=== PATIENT | female | born 1935 | race Caucasian/White ===

== ENCOUNTER 2016-06-09 00:10 | Observation (INO) | payer MEDICARE ==
[2016-06-09] MEDS ORDERED: IPRATROPIUM/ALBUTEROL 3 ML VIAL NEB ONE (00:18)
[2016-06-09] MEDS ORDERED: FUROSEMIDE INJ 40 MG/4 ML VIAL IV ONE (00:18)
--- NOTE | 2016-06-09 00:48 | RAD ---
EXAM DESCRIPTION: XR CHEST 1 VIEW CLINICAL HISTORY: 81-year-old female with shortness of Breath and noncompliance with Lasix. COMPARISON: 05/02/2016. TECHNIQUE: Single AP view of the chest was obtained portably. FINDINGS: Stable cardiac mediastinal silhouette with cardiomegaly and tortuous atherosclerotic thoracic aorta. Interstitial and central pulmonary vascular prominence raising the concern for pulmonary vascular congestion, edema with bilateral basilar left greater than right opacification a finding which may reflect edema, subsegmental atelectasis versus consolidation. No large pleural effusions are identified, however trace pleural effusions cannot be excluded. No gross pneumothoraces. The visualized bones reveal diffuse demineralization and degenerative change. IMPRESSION: 1. Cardiomegaly with interstitial and airspace opacification concerning for edema versus atelectasis/consolidation. 2. No large pleural effusions are identified, however trace pleural effusions cannot be excluded. Electronically signed by: Sana Alberto MD 06/09/2016 00:46
[2016-06-09] MEDS ORDERED: INSULIN, REG.(HUMAN) 100 U/ML VIAL SUBCU ONE (02:01)
--- NOTE | 2016-06-09 02:13 | ED.PDOC ---
History of Present Illness - General Chief Complaint: Respiratory Problem Stated Complaint: short of breath Time Seen by Provider: 06/09/16 00:16 Source: patient, family Exam Limitations: no limitations - History of Present Illness Initial Comments: the patient is an 81-year-old female presenting with 24-36 hours of symptoms of progressive shortness of breath with activity as well as with lying back. Her feet are also hurting due to swelling. She and her took a car trip and she did not take her Lasix for 3 days. She does have a significant history of congestive heart failure and was admitted for a similar reason one month ago. She does get some mild chest discomfort when she gets significantly fluid overloaded but she does now. No syncope or near syncope. I did see her last month and she is significantly less short of breath today than she was then. No fever. No productive sputum. No palpitations. Timing/Duration: 24 hours Severity: moderate Improving Factors: medication Worsening Factors: movement Associated Symptoms: cough, malaise, shortness of breath Allergies/Adverse Reactions: Allergies Heparin Allergy (Mild, Verified 06/09/16 00:20) Home Medications: Ambulatory Orders Amlodipine Besylate 10 mg .ROUTE DAILY 04/30/16 Bumetanide 2 mg .ROUTE DAILY 04/30/16 Glimepiride 4 mg PO BIDFD 04/30/16 Lyrica 75 mg .ROUTE TID 04/30/16 Toprol Xl 50 mg .ROUTE DAILY 04/30/16 Valsartan 320 mg .ROUTE DAILY 04/30/16 Azithromycin Tab [Zithromax Tab] 250 mg PO DAILY #4 tab 05/02/16 Ciprofloxacin HCl [Cipro] 250 mg PO BID #14 tab 05/02/16 Review of Systems - Review of Systems Constitutional: States: malaise EENTM: States: no symptoms reported Respiratory: States: orthopnea, short of breath Cardiology: States: chest pain, edema Gastrointestinal/Abdominal: States: no symptoms reported Genitourinary: States: no symptoms reported Musculoskeletal: States: no symptoms reported Skin: States: no symptoms reported Neurological: States: no symptoms reported All other Systems: No Change from Baseline Past Medical History (General) - Patient Medical History Hx Seizures: No Hx Stroke: No Hx Asthma: No Hx of COPD: No Hx Cardiac Disorders: Yes - bypass Hx Congestive Heart Failure: Yes Hx Pacemaker: No Hx Hypertension: Yes Hx Diabetes: No Hx MRSA: No - Vaccination History Hx Tetanus, Diphtheria Vaccination: No Hx Influenza Vaccination: Yes Hx Pneumococcal Vaccination: Yes Immunizations Up to Date: No - Social History Hx Tobacco Use: No Hx Alcohol Use: No Hx Substance Use: No Hx Substance Use Treatment: No Hx Depression: No Hx Physical Abuse: No Hx Emotional Abuse: No - Female History Patient is a Female of Child Bearing Age (10 -59 yrs old): No Patient : No Family Medical History - Family History Mother Family History: Unknown Living Status: Unknown Physical Exam - Physical Exam General Appearance: Alert, Anxious, No apparent distress Eye Exam: bilateral normal Ears, Nose, Throat: normal ENT inspection, normal pharynx Neck: full range of motion, supple Respiratory: chest non-tender, no respiratory distress, no accessory muscle use , rales - at bilateral bases. No wheezes. Good air movement. Cardiovascular/Chest: normal peripheral pulses, regular rate, rhythm Peripheral Pulses: radial,right: 2+, radial,left: 2+, dorsalis pedis,right: 2+, dorsalis pedis,left: 2+ Gastrointestinal/Abdominal: soft - obese Rectal Exam: deferred Back Exam: normal inspection Extremity: normal range of motion, no calf tenderness, normal capillary refill, pedal edema - 2+ bilaterally Neurologic: alert, normal mood/affect, oriented x 3 Skin Exam: normal color Comments: Vital Signs - 24 hr 06/09/16 06/09/16 06/09/16 00:21 01:00 01:06 Pulse Rate 86 Pulse Rate [ 90 Left] Respiratory 24 20 Rate Blood Pressure 142/80 [Left Arm] O2 Sat by Pulse 94 L 97 96 Oximetry 06/09/16 01:10 Pulse Rate Pulse Rate [ 81 Left] Respiratory 20 Rate Blood Pressure 142/78 [Left Arm] O2 Sat by Pulse 98 Oximetry Progress - Progress Progress: 06/09/16 02:16 the patient is an 81-year-old female presenting with a CHF exacerbation due to medical noncompliance with Lasix. She has been given IV Lasix and placed on oxygen. She has diuresed some and is already feeling somewhat better. the patient will be admitted for further monitoring overnight. I do suspect that she will likely be able to go home late tomorrow or early the next day. Lab work appears reassuring. EKG is at her baseline. - Results/Orders Results/Orders: Laboratory Tests 06/09/16 00:45 WBC 6.2 RBC 4.54 Hgb 12.4 Hct 38.3 MCV 84.3 MCH 27.4 MCHC 32.5 L RDW 14.7 H Plt Count 121 L MPV 9.6 Absolute Neuts (auto) 4.50 Absolute Lymphs (auto) 1.00 Absolute Monos (auto) 0.50 Absolute Eos (auto) 0.20 Absolute Basos (auto) 0.10 Neutrophils % 71.2 Lymphocytes % 16.6 L Monocytes % 8.0 Eosinophils % 3.4 Basophils % 0.8 PT 11.9 INR 1.060 PTT (SP) 33.1 Sodium 134 L Potassium 4.8 Chloride 103 Carbon Dioxide 25 Anion Gap 10.8 L BUN 29 H Creatinine 1.40 H BUN/Creatinine Ratio 20.7 H Random Glucose 298 H Serum Osmolality 285.2 Calcium 9.3 Magnesium 1.7 L Total Bilirubin 0.6 AST 23 ALT 16 Alkaline Phosphatase 62 Creatine Kinase 32 CK-MB (CK-2) 2.8 CK-MB (CK-2) % Not Reportable Troponin I < 0.02 B-Natriuretic Peptide 510.0 H* Serum Total Protein 7.2 Albumin 3.6 Globulin 3.6 H Albumin/Globulin Ratio 1.0 L chest x-ray shows cardiomegaly and vascular congestion as well as a small amount of pulmonary edema primarily left lower lobe. EKG shows normal sinus rhythm with a left axis deviation and significant bundle branch blocks consistent with previous EKGs. Departure - Departure Clinical Impression: Congestive heart failure Qualifiers: Congestive heart failure type: unspecified congestive heart failure type Congestive heart failure chronicity: acute on chronic Qualifier Code: (I50.9) Heart failure, unspecified Disposition: Admit Patient Home Medications: Ambulatory Orders Amlodipine Besylate 10 mg .ROUTE DAILY 04/30/16 Bumetanide 2 mg .ROUTE DAILY 04/30/16 Glimepiride 4 mg PO BIDFD 04/30/16 Lyrica 75 mg .ROUTE TID 04/30/16 Toprol Xl 50 mg .ROUTE DAILY 04/30/16 Valsartan 320 mg .ROUTE DAILY 04/30/16 Azithromycin Tab [Zithromax Tab] 250 mg PO DAILY #4 tab 05/02/16 Ciprofloxacin HCl [Cipro] 250 mg PO BID #14 tab 05/02/16 Decision To Admit - Decistion To Admit Decision to Admit Reason: Medical Nature Decision to Admit Date: 06/09/16 Decision to Admit Time: 02:18
[2016-06-09] MEDS ORDERED: NITROGLYCERIN 0.4 MG 25 EA TAB SL PRN (02:21)
[2016-06-09] MEDS ORDERED: SODIUM CHLORIDE 0.9% (FLUSH) 10 ML SYG IV PRN (02:21)
[2016-06-09] MEDS ORDERED: ALBUTEROL SULFATE 2.5 MG/3 ML VIAL NEB PRN (02:21)
[2016-06-09] MEDS ORDERED: DEXTROSE 50% 25 GM/50 ML SYG IV PRN (02:21)
[2016-06-09] MEDS ORDERED: ACETAMINOPHEN 325 MG TAB PO PRN (02:21)
[2016-06-09] MEDS ORDERED: GLUCAGON INJ 1 MG VIAL SUBCU PRN (02:21)
--- NOTE | 2016-06-09 02:27 | HP ---
SUPERVISING PHYSICIAN: Gino Head M.D. CHIEF COMPLAINT: Increasing shortness of breath. HISTORY OF PRESENT ILLNESS: Ms. Umanzor is an 81 year-old female patient that presented to the E. R. complaining of progressively worsening shortness of breath with activity as well as lying supine. She noted in the last 24 to 36 hours her symptoms had begun to worsen and her feet were swelling to the point they were hurting. She has a significant history of congestive heart failure and takes Bumex on a regular basis. She and her took a car trip this last week and she did not take her Lasix for 3 days due to the fact that she did not want to be inconvenienced during the trip for having to go to the restroom multiple times. She does have a significant history of having been admitted for similar reasons in the last month. When she has increasing shortness of breath secondary to failure to comply with her medication regimen, she has some mild chest discomfort and gets significantly fluid overloaded. This admission, she denied any syncopal or near syncopal episodes or any chest pains, and notes that she is not as short of breath this admission as she was on previous and is not producing any sputum or having any palpitations or chest pains associated with her symptoms. In the Emergency Department, vital signs showed the patient to have an oxygen saturation of 96% on room air but obviously short of breath with nasal flaring and significant at 24 breaths per minute. Laboratory studies showed her to have a normal white count and initially chemistries showed an elevated BNP of 510 with cardiac enzymes being negative and troponin being less than 0.02. Chest x-ray was also completed and per radiology findings showed cardiomegaly with interstitial airspace opacification concerning for edema with no mention of large pleural effusions. In the Emergency Department prior to admission, she was given a DuoNeb treatment as well as 40 mg of IV Lasix and had significant improvement in her symptoms, therefore she will be placed in observation for continued diuresis and close monitoring and treatment. She was admitted in stable condition. PAST MEDICAL HISTORY: 1. Chronic congestive heart failure with diastolic dysfunction grade 2 with last echocardiogram in 2014 showing an ejection fraction of 56%. 2. History of medical noncompliance with diuretics and multiple exacerbations of her congestive heart failure requiring hospitalization with last being April 2016. 3. Coronary artery disease. 4. Hyperlipidemia. 5. Hypertension. 6. History of left hip fracture in 2006. 7. Osteoarthritis. 8. Type 2 diabetes mellitus on p.o. and insulin therapy. 9. 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 10. 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 PAST SURGICAL HISTORY: 1. Appendectomy. 2. Coronary artery bypass graft times 5 vessels in February of 2002. 3. Bilateral cataract removal in 2003. 4. Cholecystectomy. 5. Hysterectomy. 6. Tonsillectomy. 7. Bladder suspension. CURRENT MEDICATIONS: 1. Valsartan 320 mg daily. 2. Toprol XL 50 mg daily. 3. Nortriptyline 50 mg at bedtime. 4. Lyrica 75 mg 3 times a day. 5. Glimepiride 4 mg twice daily. 6. Bumetanide 2 mg daily. 7. Amlodipine 10 mg daily. ALLERGIES: HEPARIN RESULTED IN COMPLICATIONS FROM CORONARY ARTERY BYPASS GRAFT WITH SEVERE THROMBOCYTOPENIA. FAMILY HISTORY: Father at age 83 from coronary artery disease, diabetes mellitus, myocardial infarction in his 70s. Mother at age 39 from complications of hysterectomy. SOCIAL HISTORY: The patient lives in [place]. 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 She has never smoked nor has she ever drank alcohol. REVIEW OF SYSTEMS: Notes some weight gain since Dorothy, nonspecific amount but denies any fever or chills. HEENT: Denies any nasal congestion, sore throat or cough. RESPIRATORY: Denies any cough but reports orthopnea with shortness of breath and wheezing as noted in History of Present Illness. Denies any sputum production. CARDIOVASCULAR: Positive for edema and a history of congestive heart failure but denies any current chest pain or palpitations. ABDOMEN: Denies any abdominal pain, nausea, vomiting or diarrhea. GENITOURINARY : No increased frequency or other dysuria or urinary symptoms. NEUROLOGIC: No syncopal or presyncopal episodes, dizziness or other neurological symptoms. PHYSICAL EXAMINATION: VITAL SIGNS: Temperature 98.2, pulse 91, blood pressure 180/87, respirations 22 to 24 showing 98% on nasal cannula at rest. Admission weight is 107/3 kg which is a significant increase from previous admission at which time she weighed 96.6 kg. GENERAL: The patient is alert. Appears to be somewhat short of breath but is not in obvious distress. She is well nourished and well hydrated. HEENT: Tympanic membranes are clear bilaterally. Oropharynx is pink and moist without any lesions. There is no notable nasal congestion or any nasal flaring or increased use of accessory respiratory muscles. NECK: No jugular venous distention. CARDIOVASCULAR: Regular rate and rhythm without any appreciable gallops or rubs. There is note of a systolic murmur 2/6. ABDOMEN: Soft, obese but non-tender. Positive bowel sounds. EXTREMITIES: Show 2 to 3+ bilateral lower extremity edema, but no clubbing or cyanosis. NEUROLOGIC: She is alert and oriented times three. Cranial nerves II-XII are grossly intact. Facial features are symmetric. Extraocular movements are within normal limits. There is no nystagmus. There is no notable localizing or lateralizing neuromotor deficits. LABORATORY: CBC on admission shows a normal white count at 6.2, hemoglobin 12.4 , hematocrit 38.3, platelet count 121,000. Differential shows to be within normal limits. Coagulation studies are normal. Chemistries show sodium 134 with BUN 20, creatinine 1.4, potassium was normal at 4.8, calcium 9.8, magnesium 1.7. Liver functions show to be within normal limits. BNP was elevated at 510, troponin was less than 0.02. Initial glucose was 298 on admission. Urine showed dipstick with 100 protein, moderate amount of blood, but negative for nitrites or leukocyte esterase. Microscopic exam revealed 10 to 20 RBCs, 1 to 3 WBCs, 3 to 5 epithelial cells, 3+ amorphous sediment and 1+ bacteria. Urine culture is pending. RADIOLOGY: Chest x-ray one view per radiology interpretation prior to admission showed cardiomegaly with interstitial airspace opacification concerning for edema versus atelectasis/consolidation. There is no note of a large pleural effusion, however trace pleural effusions could not be excluded. ASSESSMENT: 1. Acute exacerbation of chronic congestive heart failure with diastolic dysfunction grade 2 as noted on last echocardiogram in 2014 with ejection fraction of 56% with elevated BNP on admission secondary to failure to comply with medication regimen. 2. Possible urinary tract infection with cultures pending. 3. History of coronary artery disease. 4. Hyperlipidemia. 5. Hypertension. 6. Type 2 diabetes mellitus on both oral therapy and insulin. 7. History of Heparin-induced thrombocytopenia. 8. Poor medical compliance in relation to medications for congestive heart failure as noted to result in acute exacerbation of her congestive heart failure. 9. Hypomagnesemia. PLAN: The patient will be placed in Observation for further treatment and evaluation. She was given 40 of Lasix in the Emergency Department and had good diuresis. She was admitted with no chest pains with some improvement in her breathing post diuresis as well as DuoNeb treatments. I will continue with diuresis this morning with an additional 40 of Lasix as well as resume her Bumex. She did have a Baker placed in the Emergency Department prior to admission, therefore will monitor her urine output closely and limit her total fluid intake to less than 1500 mL for a 24 hour day. She will be started on sliding scale for further management of her blood sugars and as well started on parenteral antibiotics to include Rocephin for treatment of possible underlying urinary tract infection. Anticipate length of stay to be 1 to 2 days, possibly discharge tomorrow after continued diuresis tonight with additional 40 of Lasix at 5:00. Plan to repeat laboratory studies in the morning as well as repeat x- ray and hopefully be able to discharge the patient tomorrow to have close clinical followup with her primary care physician, Dr. Wild, in the coming week. Until then, will continue to monitor the patient closely and treat appropriately. [id number] [facility]
[2016-06-09] MEDS ORDERED: IV SET AND CAP CHANGE INJ INJ SCH (02:30)
[2016-06-09] MEDS: IPRATROPIUM/ALBUTEROL 3 ML VIAL INH SCH ×4 (08:19→20:28)
[2016-06-09] MEDS: INSULIN LISPRO 100 UNITS/ML PEN SUBCU SCH ×4 (08:22→21:24)
[2016-06-09] MEDS ORDERED: cefTRIAXone SODIUM 1 GM VIAL ONE (08:55)
[2016-06-09] MEDS ORDERED: SODIUM CHL 0.9% 50ML MIN-BAG+ 50 ML IVPB ONE (08:55)
[2016-06-09] MEDS: cefTRIAXone SODIUM 1 GM in SODIUM CHL 0.9% 50ML MIN-BAG+ 50 ML IVPB SCH (08:58)
[2016-06-09] MEDS: FUROSEMIDE INJ 40 MG/4 ML VIAL IV SCH ×2 (09:14→17:30)
[2016-06-09] MEDS: BUMETANIDE TAB 2 MG TAB PO SCH (09:45)
[2016-06-09] MEDS: VALSARTAN 80 MG TAB PO SCH (09:46)
[2016-06-09] MEDS: PREGABALIN 75 MG CAP PO SCH ×3 (09:46→20:43)
[2016-06-09] MEDS: METOPROLOL SUCCINATE XL 50 MG TAB PO SCH (09:46)
[2016-06-09] MEDS: amLODIPine BESYLATE 5 MG TAB PO SCH (09:46)
[2016-06-09] MEDS: GLIMEPIRIDE 2 MG TAB PO SCH (17:30)
[2016-06-09] MEDS ORDERED: NORTRIPTYLINE HCL 25 MG CAP PO SCH (21:00)
[2016-06-10] MEDS: INSULIN LISPRO 100 UNITS/ML PEN SUBCU SCH ×2 (07:32→11:45)
[2016-06-10] MEDS ORDERED: SODIUM CHL 0.9% 50ML MIN-BAG+ 50 ML IVPB ONE (07:52)
[2016-06-10] MEDS ORDERED: cefTRIAXone SODIUM 1 GM VIAL ONE (07:53)
[2016-06-10] MEDS: amLODIPine BESYLATE 5 MG TAB PO SCH ×2 (07:57→08:38)
[2016-06-10] MEDS: GLIMEPIRIDE 2 MG TAB PO SCH (07:58)
[2016-06-10] MEDS: cefTRIAXone SODIUM 1 GM in SODIUM CHL 0.9% 50ML MIN-BAG+ 50 ML IVPB SCH (08:00)
[2016-06-10] MEDS: IPRATROPIUM/ALBUTEROL 3 ML VIAL INH SCH ×2 (08:33→11:41)
[2016-06-10] MEDS: FUROSEMIDE INJ 40 MG/4 ML VIAL IV SCH (08:38)
[2016-06-10] MEDS: METOPROLOL SUCCINATE XL 50 MG TAB PO SCH (08:38)
[2016-06-10] MEDS: VALSARTAN 80 MG TAB PO SCH (08:39)
[2016-06-10] MEDS: PREGABALIN 75 MG CAP PO SCH (08:39)
[2016-06-10] MEDS: BUMETANIDE TAB 2 MG TAB PO SCH (08:39)
[2016-06-10] MEDS ORDERED: SODIUM CHLORIDE 0.9% (FLUSH) 10 ML SYG IV SCH (09:00)
--- NOTE | 2016-06-10 09:00 | RAD ---
EXAM DESCRIPTION: X-RAY CHEST- One View CLINICAL HISTORY: Congestive heart failure. COMPARISON: 06/09/2016 TECHNIQUE: Single view of the chest. FINDINGS: There is presence of minimal left basilar infiltrates/ atelectasis and probable tiny left side pleural effusion The pulmonary vascularity is normal. Note is again made of median sternotomy. There are no pneumothoraces The cardiomediastinal silhouette is stable. IMPRESSION: There is presence of minimal left basilar infiltrates/ atelectasis and probable tiny left side pleural effusion. Electronically signed by: Luis Enrique Prescott MD 06/10/2016 08:58
[2016-06-10 10:23] VITALS: BP 115/78; TEMP 97
[2016-06-10 11:40] VITALS: O2SAT 97
--- NOTE | 2016-06-18 17:57 | DS ---
SUPERVISING PHYSICIAN: Gino Head M.D. DISCHARGE DIAGNOSIS: 1. Acute exacerbation of chronic congestive heart failure with diastolic dysfunction grade 2 as noted on last echocardiogram in 2014 with ejection fraction of 56% with elevated BNP on admission secondary to failure to comply with medication regimen. 2. Coronary artery disease. 3. Hyperlipidemia. 4. Hypertension. 5. Type 2 diabetes mellitus on both oral therapy and insulin. 6. History of Heparin-induced thrombocytopenia. 7. Poor medical compliance in relation to medications for congestive heart failure as noted to result in acute exacerbation of her congestive heart failure. 8. Hypomagnesemia, resolved. LABORATORY: White count on admission was 6.2, hemoglobin and hematocrit were stable, at time of discharge hemoglobin was 11.8 and hematocrit 36.7, platelet count 111,000. Differential showed to be within normal limits. Coagulation studies showed normal PT and PTT. Chemistries showed BNP was elevated at 510, electrolytes initially showed sodium 134, potassium 4.8. At time of discharge, electrolytes had normalized with BUN 34, creatinine 1.55 after diuresis with osmolality 288, glucose was 91 to 298. Urine on admission showed 100 of protein , moderate amount of blood, negative leukocyte esterase. Microscopic showed 10 to 20 RBCs, 1 to 3 WBCs, 3 to 5 epithelial cells, 3+ amorphous material and 1+ bacteria. MICROBIOLOGY: Urine culture showed no growth in 48 hours. HOSPITAL COURSE: Ms. Umanzor was admitted as noted in her History of Present Illness for acute exacerbation of congestive heart failure. She was started on Lasix for diuresis and showed good results with well over 6 liters diuresed with her weight change from admission of 107.3 kg to 99.3 kg. She remained stable. Blood pressure at time of discharge showed 115/78, respirations 18. She was satting 96% on room air with a temperature of 97. Initially on admission she did show 94% saturations on room air with a blood pressure of 142/ 80. She was no longer requiring oxygen assistance by discharge and was felt clinically improved well enough to discharge home. PLAN: Ms. Umanzor was discharged on 06/10/16 to have close clinical followup with her primary care physician, Dr. Wild. Resume all previous medications and take as directed and again reinforced to continue to comply with medication regimen to prevent any further exacerbation of congestive heart failure. She was to limit her total daily fluids to less than 1800 mL in a 24 hour day. She was to weigh herself daily and to notify Dr. Wild at his office if she had a weight gain of over 3 pounds or more in 24 hours. She was again encouraged to not stop taking medications when traveling and return to the hospital if not improving. No new medications were added to her medication regimen at time of discharge. She was discharged in stable condition. #[id number] [facility]TD[facility]
== END 2016-06-10 14:20 | disposition home health service (06) ==
LOC: ER 00:10 → MS 02:26 → INTOOBSV 02:26
PROVIDERS: ADMIT Nurse Practitioner Family; ATTEND Nurse Practitioner Family
DX: I50.33 Acute on chronic diastolic (congestive) heart failure (principal); R06.02 Shortness of breath; I25.10 Atherosclerotic heart disease of native coronary artery without angina pectoris; E78.5 Hyperlipidemia, unspecified; I10 Essential (primary) hypertension; E11.9 Type 2 diabetes mellitus without complications; D75.82 Heparin induced thrombocytopenia (HIT); T45.515A Adverse effect of anticoagulants, initial encounter; E83.42 Hypomagnesemia; I44.0 Atrioventricular block, first degree; I45.10 Unspecified right bundle-branch block; Z91.14 Patient's other noncompliance with medication regimen; Z79.4 Long term (current) use of insulin; Z79.84 Long term (current) use of oral hypoglycemic drugs; Z79.899 Other long term (current) drug therapy; Z95.1 Presence of aortocoronary bypass graft; Y92.009 Unspecified place in unspecified non-institutional (private) residence as the place of occurrence of the external cause
CPT/HCPCS: 36415; 36416 ×3; 71010 ×2; 80048; 80053; 81001; 82550; 82553; 82948 ×6; 83735; 83880; 84484; 85025 ×2; 85610; 85730; 87086; 93005; 94640 ×7; 94760; 94762; 96365; 96366; 96372 ×2; 96375; 96376 ×2; 99284; G0378; J0696 ×2; J1815; J1940 ×4; J7050 ×2; J7620 ×7

== ENCOUNTER → 2016-06-22 | Outpatient (CLI) | payer MEDICARE | LOC: GMAL 10:58 | PROVIDERS: ATTEND Family Medicine | DX: D51.3 Other dietary vitamin B12 deficiency anemia (principal); R53.82 Chronic fatigue, unspecified ==

== ENCOUNTER 2016-07-06 18:45 | Emergency (ER) | payer MEDICARE ==
[2016-07-06 19:31] VITALS: TEMP 98.3; O2SAT 98
--- NOTE | 2016-07-06 19:32 | ED.PDOC ---
History of Present Illness - General Chief Complaint: Skin/Abrasion/Tear Stated Complaint: blisters to Rt foot Time Seen by Provider: 07/06/16 19:19 Source: patient, RN notes reviewed, Vital Signs reviewed, family Exam Limitations: no limitations - History of Present Illness Initial Comments: This 81 y/o female with type II diabetes has had lesions on her right toes for 4 days. She woke up on Sunday morning with blisters on the tops of her right toes. The blisters popped two days later. They saw her PCP 2 days ago, and he put her on two antibiotics. Today, they noticed some blackness on the tops of her toes. Her home health nurse evaluated them and told her to come to the ED. The pain is a 4/10 and shoots up her foot. She denies any fever or chills. She has felt fine today. Patient and her drove to [place] 6 days ago, and patient's feet were propped up under the dash. They did have the heater on for a short period of time, however, they did not notice any changes in the skin until 4 days ago. Timing/Duration: getting worse, other - 4 days Severity: moderate Improving Factors: nothing Worsening Factors: nothing Associated Symptoms: denies symptoms Allergies/Adverse Reactions: Allergies Heparin Allergy (Mild, Verified 07/06/16 19:16) Home Medications: Ambulatory Orders Amlodipine Besylate 10 mg .ROUTE DAILY 04/30/16 Bumetanide 2 mg .ROUTE DAILY 04/30/16 Glimepiride 4 mg PO BIDFD 04/30/16 Lyrica 75 mg .ROUTE TID 04/30/16 Toprol Xl 50 mg .ROUTE DAILY 04/30/16 Valsartan 320 mg .ROUTE DAILY 04/30/16 Nortriptyline HCl 50 mg PO BEDTIME 06/09/16 Review of Systems - Review of Systems Constitutional: States: no symptoms reported. Denies: chills, fever EENTM: States: no symptoms reported Respiratory: States: no symptoms reported Cardiology: States: no symptoms reported Gastrointestinal/Abdominal: States: no symptoms reported Genitourinary: States: no symptoms reported Musculoskeletal: States: no symptoms reported Skin: States: lesions, rash Neurological: States: no symptoms reported Endocrine: States: no symptoms reported Hematologic/Lymphatic: States: no symptoms reported All other Systems: Reviewed and Negative Past Medical History (General) - Patient Medical History Hx Seizures: No Hx Stroke: No Hx Asthma: No Hx of COPD: No Hx Cardiac Disorders: Yes - bypass Hx Congestive Heart Failure: Yes Hx Pacemaker: No Hx Hypertension: Yes Hx Diabetes: Yes Hx MRSA: No - Vaccination History Hx Tetanus, Diphtheria Vaccination: No Hx Influenza Vaccination: Yes Hx Pneumococcal Vaccination: Yes - Social History Hx Tobacco Use: No Hx Alcohol Use: No Hx Substance Use: No Hx Substance Use Treatment: No Hx Depression: No Hx Physical Abuse: No Hx Emotional Abuse: No - Female History Patient : No Family Medical History - Family History Mother Family History: Unknown Living Status: Unknown Physical Exam - Physical Exam General Appearance: Alert, Comfortable, No apparent distress Ears, Nose, Throat: hearing grossly normal Neck: full range of motion Respiratory: lungs clear, normal breath sounds, no respiratory distress, no accessory muscle use Cardiovascular/Chest: regular rate, rhythm, no edema, no gallop, no murmur Peripheral Pulses: dorsalis pedis,right: 1+, dorsalis pedis,left: 2+, posterior tibialis,right: 1+, posterior tibialis,left: 2+ Gastrointestinal/Abdominal: normal bowel sounds, non tender, soft, no organomegaly, no pulsatile mass Extremity: normal range of motion, no pedal edema, no calf tenderness, other Neurologic: alert, normal mood/affect, oriented x 3 Skin Exam: other - R foot: There is exfoliation of the epidermis on the volar toes. This wraps around to the dorsal side in toes 1 and 2. Black oval areas on the volar side of toes 1, 2 and 5. There is brownness on the volar part of toe #4. The toe tips are spared. The skin is dry with mild occasional seeping of clear fluid. ERythema surrounds the exfoliation and progresss up to the volar mid-foot. There is no heat to the area. Minimal pain with palpation. Progress - Progress Progress: 07/06/16 21:31 I discussed Patient's case with Dr. Zapata and Dr. Shi. Dr. Shi indicated that Patient should be obs'd since we do not know what is going on. Dr. Zapata accepted Patient. However, when I informed Patient that she would be admitted by Dr. Zapata and Dr. Shi would see her in the morning, she and her declined and stated that they wanted to leave and they would go to [place]. They signed out AMA. - Results/Orders Results/Orders: 07/06/16 07/06/16 19:25 21:12 Temperature 98.3 F Pulse Rate [ 75 71 left] Respiratory 18 18 Rate Blood Pressure 120/75 122/71 [left] O2 Sat by Pulse 98 98 Oximetry 07/06/16 19:25 Foot,Right 3 Views [RAD] Stat 07/06/16 20:05 BLOOD CULTURE Stat 07/06/16 21:29 WOUND CULTURE Stat Laboratory Results WBC 10.7 K/mm3 (4.8-10.8) 07/06/16 20:05 RBC 4.91 M/mm3 (4.20-5.40) 07/06/16 20:05 Hgb 13.6 gm/dL (12.0-16.0) 07/06/16 20:05 Hct 41.2 % (36.0-47.0) 07/06/16 20:05 MCV 83.8 fl (81.0-99.0) 07/06/16 20:05 MCH 27.6 pg (27.0-31.0) 07/06/16 20:05 MCHC 32.9 g/dL (33.0-37.0) L 07/06/16 20:05 RDW 14.9 % (11.5-14.5) H 07/06/16 20:05 Plt Count 91 K/mm3 (130-400) L 07/06/16 20:05 MPV 10.3 fl (7.40-10.4) 07/06/16 20:05 Absolute Neuts (auto) 8.30 K/uL (1.8-6.8) H 07/06/16 20:05 Absolute Lymphs (auto) 1.20 K/uL (1.0-3.4) 07/06/16 20:05 Absolute Monos (auto) 0.80 K/uL (0.2-0.8) 07/06/16 20:05 Absolute Eos (auto) 0.40 K/uL (0.0-0.4) 07/06/16 20:05 Absolute Basos (auto) 0.10 K/uL (0.0-0.1) 07/06/16 20:05 Neutrophils % 77.4 % (42.0-78.0) 07/06/16 20:05 Lymphocytes % 11.0 % (20.0-50.0) L 07/06/16 20:05 Monocytes % 7.5 % (2.0-9.0) 07/06/16 20:05 Eosinophils % 3.3 % (1.0-5.0) 07/06/16 20:05 Basophils % 0.8 % (0.0-2.0) 07/06/16 20:05 Sodium 138 mmol/L (135-145) 07/06/16 20:05 Potassium 5.0 mmol/L (3.6-5.0) 07/06/16 20:05 Chloride 105 mmol/L (101-111) 07/06/16 20:05 Carbon Dioxide 24 mmol/L (21-31) 07/06/16 20:05 Anion Gap 14.0 (12-18) 07/06/16 20:05 BUN 35 mg/dL (7-18) H 07/06/16 20:05 Creatinine 1.82 mg/dL (0.6-1.3) H 07/06/16 20:05 BUN/Creatinine Ratio 19.2 (10-20) 07/06/16 20:05 Random Glucose 95 mg/dL (70-105) 07/06/16 20:05 Serum Osmolality 283.5 mOsm/L (275-295) 07/06/16 20:05 Calcium 9.3 mg/dL (8.4-10.2) 07/06/16 20:05 Total Bilirubin 0.2 mg/dL (0.2-1.0) 07/06/16 20:05 AST 16 IU/L (10-42) 07/06/16 20:05 ALT 15 IU/L (10-60) 07/06/16 20:05 Alkaline Phosphatase 52 IU/L (42-121) 07/06/16 20:05 Serum Total Protein 7.5 gm/dL (6.4-8.2) 07/06/16 20:05 Albumin 3.6 g/dl (3.2-5.5) 07/06/16 20:05 Globulin 3.9 gm/dL (2.3-3.5) H 07/06/16 20:05 Albumin/Globulin Ratio 0.9 (1.1-1.9) L 07/06/16 20:05 - EKG/XRAY/CT XRAY: R toes Xray Comments: No mauricio involvement Departure - Departure Clinical Impression: Skin desquamation, Type 2 diabetes mellitus, controlled Cellulitis Qualifiers: Site of cellulitis: other site Qualifier Code: (L03.818) Cellulitis of other sites Time of Disposition: 21:36 Disposition: Left Against Medical Advice Condition: Good Home Medications: Ambulatory Orders Amlodipine Besylate 10 mg .ROUTE DAILY 04/30/16 Bumetanide 2 mg .ROUTE DAILY 04/30/16 Glimepiride 4 mg PO BIDFD 04/30/16 Lyrica 75 mg .ROUTE TID 04/30/16 Toprol Xl 50 mg .ROUTE DAILY 04/30/16 Valsartan 320 mg .ROUTE DAILY 04/30/16 Nortriptyline HCl 50 mg PO BEDTIME 06/09/16
--- NOTE | 2016-07-06 20:28 | RAD ---
NAME: LOLY ARIZAPROCEDURE: XR TOES 2 OR MORE VIEWSORDER DATE: 07/06/2016 7:25 PM CSTACCESSION NUMBER: [id number] CLINICAL HISTORY: skin lesion with black areas on ventral toes INDICATION: Same as above COMPARISON: X-ray of the right foot done on the same day . TECHNIQUE: 3.0 Views of the first through the fifth digit of the right foot were done. FINDINGS: There is no evidence of acute fractures or dislocation involving the first through the fifth digit of the right foot. There is no visualization of any periosteal reactions. The joint spaces are well-maintained. The adjacent soft tissues are radiographically unremarkable. There is no visualization of any radiopaque foreign bodies in the soft tissues. IMPRESSION: Unremarkable x-ray of the right foot toes Place of interpretation: Teleradiology. Electronically signed by: Luis Enrique Prescott MD 07/06/2016 8:27 PM HOE WORKER
[2016-07-06 21:13] VITALS: BP 122/71
--- NOTE | 2016-07-07 09:21 | RAD ---
NAME: LOLY ARIZAPROCEDURE: XR FOOT 3 OR MORE VIEWSORDER DATE: 07/06/2016 7:25 PM CSTACCESSION NUMBER: [id number] CLINICAL HISTORY: skin lesion with black areas on ventral toes INDICATION: Same as above COMPARISON: None . TECHNIQUE: 3.0 Views of the right foot were done. FINDINGS: There is no evidence of acute fractures or dislocation involving the bones of the right foot. There is no evidence of any periosteal reactions. The joint spaces are relatively well-maintained. There is no evidence of bony tarsal coalition. The soft tissues are radiographically unremarkable. IMPRESSION: Unremarkable x-ray of the right foot Place of interpretation: [id number]. Electronically signed by: Luis Enrique Prescott MD 07/06/2016 8:25 PM SAILBOAT CAPTAIN
--- NOTE | 2016-07-30 23:51 | RAD ---
NAME: LOLY ARIZAPROCEDURE: XR FOOT 3 OR MORE VIEWSORDER DATE: 07/06/2016 7:25 PM CSTACCESSION NUMBER: [id number] CLINICAL HISTORY: skin lesion with black areas on ventral toes INDICATION: Same as above COMPARISON: None . TECHNIQUE: 3.0 Views of the right foot were done. FINDINGS: There is no evidence of acute fractures or dislocation involving the bones of the right foot. There is no evidence of any periosteal reactions. The joint spaces are relatively well-maintained. There is no evidence of bony tarsal coalition. The soft tissues are radiographically unremarkable. IMPRESSION: Unremarkable x-ray of the right foot Place of interpretation: [id number]. Electronically signed by: Luis Enrique Prescott MD 07/06/2016 8:25 PM BILLING AND QUALITY TECHNICIAN
--- NOTE | 2016-07-30 23:51 | RAD ---
NAME: LOLY ARIZAPROCEDURE: XR TOES 2 OR MORE VIEWSORDER DATE: 07/06/2016 7:25 PM CSTACCESSION NUMBER: [id number] CLINICAL HISTORY: skin lesion with black areas on ventral toes INDICATION: Same as above COMPARISON: X-ray of the right foot done on the same day . TECHNIQUE: 3.0 Views of the first through the fifth digit of the right foot were done. FINDINGS: There is no evidence of acute fractures or dislocation involving the first through the fifth digit of the right foot. There is no visualization of any periosteal reactions. The joint spaces are well-maintained. The adjacent soft tissues are radiographically unremarkable. There is no visualization of any radiopaque foreign bodies in the soft tissues. IMPRESSION: Unremarkable x-ray of the right foot toes Place of interpretation: Teleradiology. Electronically signed by: Luis Enrique Prescott MD 07/06/2016 8:27 PM WEDGER MACHINE
== END 2016-07-06 21:44 | disposition left against medical advice (07) ==
LOC: ER 18:45
DX: R23.4 Changes in skin texture (principal); E11.9 Type 2 diabetes mellitus without complications; L03.818 Cellulitis of other sites; I11.0 Hypertensive heart disease with heart failure; I50.9 Heart failure, unspecified; Z79.899 Other long term (current) drug therapy; Z88.8 Allergy status to other drugs, medicaments and biological substances; Z95.1 Presence of aortocoronary bypass graft

== ENCOUNTER → 2016-07-11 | Outpatient (CLI) | payer MEDICARE | LOC: NC 16:45 | PROVIDERS: ATTEND Family Medicine | DX: I11.0 Hypertensive heart disease with heart failure (principal); I50.32 Chronic diastolic (congestive) heart failure; E11.9 Type 2 diabetes mellitus without complications ==

== ENCOUNTER 2016-08-28 06:35 | Inpatient (IN) | payer MEDICARE ==
[2016-08-28] MEDS ORDERED: ASPIRIN TABLET 325 MG TAB PO ONE (06:38)
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
--- NOTE | 2016-08-28 07:16 | RAD ---
Portable chest INDICATION: Chest pain new dialysis COMPARISON: June 10, 2016 IMPRESSION: Multilumen dialysis catheter right IJ region to the lower SVC. Cardiomegaly with previous median sternotomy. Diffuse interstitial edema and vascular congestion new from prior exam. No large effusion or pneumothorax. This may be cardiogenic or noncardiogenic edema. Electronically signed by: Codey Durham MD 08/28/2016 7:15 AM CDT
[2016-08-28] MEDS ORDERED: FUROSEMIDE INJ 100 MG/10 ML VIAL IV ONE (07:23)
--- NOTE | 2016-08-28 09:06 | HP ---
HISTORY OF PRESENT ILLNESS: This 81-year-old, white female was admitted to the hospital via the Emergency Room because of worsening shortness of breath. She is unable to lie down flat and has to sit up in order to breathe. Of significance is that she was recently in [facility] until two weeks ago when she has four weeks of dialysis after renal biopsy showed significant renal impairment. Catheter was placed in her right upper chest to facilitate this hemodialysis treatment. She also had had some fairly significant second degree mota on the dorsum of her right toes from being too close to an electric heater when she was in the bathroom of one of her children. She was subsequently placed in rehabilitation for the last two weeks and was discharged last Sunday. Dialysis continued with her last dialysis treatment being last Sunday, which was 08/26/16. Arrangements were made for her to continue with dialysis on Sunday, , and Saturdays at our [facility] under Dr. Mckenzie's direction. She was scheduled for a 1: 15 PM slot and chair for dialysis. Her shortness of breath and associated chest discomfort has been getting worse for the last two weeks during her rehab. She was unable to be physically able to really participate with the rehab, thereby necessitating her eventual discharge earlier than anticipated. In the Emergency Room, she was found to have an elevated beta natriuretic peptide of almost 2500. Initial loop diuresis was initiated and the patient was admitted to the hospital for fluid restrictions, ongoing dialysis, and reevaluation of the renal function by in the morning and further communication with Dr. Mckenzie. PAST MEDICAL HISTORY: 1. Chronic congestive heart failure with a diastolic dysfunction with last echocardiogram in 2014 showing a 56% ejection fraction. 2. History of medical noncompliance with the patient choosing fewer diuretics with resultant multiple exacerbations of congestive heart failure requiring hospitalization recently. 3. History of chronic coronary artery disease. 4. History of hyperlipidemia. 5. History of hypertension. 6. History of left hip fracture in 2006. 7. History of chronic osteoarthritis. 8. Diabetes mellitus, type 2, on oral as well as insulin therapy requiring adjustments. 9. 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 10. 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 11. History of acute renal failure with biopsy obtained at [facility] and now on dialysis with hemodialysis procedures for the last six weeks and scheduled to continue. Whether this is secondary to an antibiotic toxicity on the kidneys, yet to be determined as we get results of the patient's hospital stay and biopsy results. PAST SURGICAL HISTORY: 1. Appendectomy. 2. Coronary artery bypass grafting on five vessels in February of 2002. 3. Bilateral cataract removal in 2003. 4. Cholecystectomy. 5. Hysterectomy. 6. Tonsillectomy. 7. Bladder suspension. CURRENT MEDICATIONS: Please refer to nursing notes for an up to date, verified list of medications taken by the patient. ALLERGIES: HEPARIN, WHICH RESULTED A COMPLICATION AFTER CORONARY ARTERY BYPASS PROCEDURE AND SEVERE THROMBOCYTOPENIA. FAMILY HISTORY: Positive for coronary artery disease, diabetes, complications of surgery. SOCIAL HISTORY: The patient lives in [place] with her . She has previously been and been now for 13 years. She has never smoked , nor drunk alcoholic beverages. REVIEW OF SYSTEMS: GENERAL: Some weight gain fairly recently. HEENT: No significant hearing or vision disturbances. LUNGS: Significant cough over the last week or two with shortness of breath, especially upon lying down and upon gentle exertion. CARDIOVASCULAR: Some chest discomfort with the significant shortness of breath that she has as well as some associated pitting edema. GASTROINTESTINAL: Moderately obese, yet no significant pain or vomiting. GENITOURINARY: No dysuria. NEUROLOGIC: Generally weak and having difficulty ambulating. PHYSICAL EXAMINATION: VITAL SIGNS: Afebrile. Pulse 88. Blood pressure 131/55. Earlier, it was 96/ 62. Pulse oximetry 93% on room air. Weight 97.1 kg. GENERAL: The patient is fairly awake and alert. She seems to be happy, but is very weak and at times dyspneic and very anxious. HEENT: Unremarkable. NECK: Supple with no noticeable adenopathy. LUNGS: Diminished breath sounds with a few rales, especially in the right base. CARDIOVASCULAR: Heart tones are somewhat distant with some irregularities noted. Occasional PVC on rhythm strip. ABDOMEN: Bowel tones present. Mild epigastric discomfort upon palpation. No organomegaly evident. EXTREMITIES: Well-formed with increased adiposity as well as 3+ pitting edema, more prominent on the right than the left lower extremity. The toes of the right foot are significantly involved with peeling of darkened skin, especially involving the second through fifth toe dorsum. The right toe has already peeled and fairly clean. Dressing and cleaning will continue to help prevent infection. NEUROLOGIC: The patient is generally quite weak, having difficulty ambulating and will require physical therapy in order to strengthen. LABORATORY: White count 3,400 with 63% neutrophils, hemoglobin 11.1. INR 1.06 , D-dimer 259. Chemistries show potassium 3.7, CO2 27, BUN 18, creatinine 2.23 , glucose 155 fasting, osmolality 280, calcium 9.3, liver enzymes normal. Troponin 0.07. Beta natriuretic peptide 2,450. Albumin 3.8. Urinalysis showed leukocyte esterase, a few red blood cells, pyuria, 3+ bacteruria with culture pending. Chest x-ray does show cardiomegaly with pulmonary edema and evidence of pulmonary vascular congestion. ASSESSMENT: 1. Chronic congestive heart failure with a diastolic component with markedly elevated beta natriuretic peptide as well as radiographic evidence of pulmonary edema with an acute exacerbation. 2. Pancytopenia 3. Recent mota on the dorsum of the right toes, second degree, suffered on July 01, 2016 with necrotic peeling skin requiring ongoing debridement. 4. Diabetes mellitus, type 2, on insulin therapy with dosing adjustments required. 5. Peripheral neuropathy secondary to diabetes. 6. History of coronary artery disease. 7. History of hypertension. 8. History of chronic anxiety. 9. History of heparin reaction after coronary artery bypass grafting with resultant thrombocytopenia. 10. History of right buttock decubitus ulcer. 11. History of recent deep venous thrombosis especially involving the right lower extremity. PLAN: We will continue with rehabilitation to check on the patient's ability to get stronger. We will monitor her kidney function with repeat lab in the morning. Increase diuresis. Place on fluid restriction. Observe closely. Discuss with Dr. Mckenzie tomorrow so he will be able to help make a decision as to whether the patient even requires further hemodialysis. Close followup necessary. #[id number] [facility]
[2016-08-28] MEDS ORDERED: NITROGLYCERIN 0.4 MG 25 EA TAB SL PRN (10:51)
[2016-08-28] MEDS: IV SET AND CAP CHANGE INJ INJ SCH ×2 (11:12→12:32)
[2016-08-28] MEDS ORDERED: ACETAMINOPHEN 325 MG TAB PO PRN (11:18)
[2016-08-28] MEDS ORDERED: MAGNESIUM HYDROXIDE 30 ML UD PO PRN (11:18)
[2016-08-28] MEDS ORDERED: DEXTROSE 50% 25 GM/50 ML SYG IV PRN (11:39)
[2016-08-28] MEDS ORDERED: GLUCAGON INJ 1 MG VIAL SUBCU PRN (11:39)
[2016-08-28] MEDS ORDERED: BUMETANIDE TAB 2 MG TAB ONE (12:42)
[2016-08-28] MEDS ORDERED: amLODIPine BESYLATE 5 MG TAB ONE ×2 (12:42→12:46)
[2016-08-28] MEDS ORDERED: ASPIRIN (CHEWABLE) 81 MG TAB ONE (12:42)
[2016-08-28] MEDS: HYDROcodone 5MG/APAP 325MG 1 EA TAB PO PRN (12:45)
[2016-08-28] MEDS: amLODIPine BESYLATE 5 MG TAB PO SCH (12:45)
[2016-08-28] MEDS: BUMETANIDE TAB 2 MG TAB PO SCH (12:48)
[2016-08-28] MEDS ORDERED: ASPIRIN (ENTERIC COATED) 325 MG TAB PO ONE (12:49)
[2016-08-28] MEDS ORDERED: ASPIRIN EC 81 MG TAB PO ONE (12:51)
[2016-08-28] MEDS: ASPIRIN EC 81 MG TAB PO SCH (12:52)
[2016-08-28] MEDS ORDERED: INSULIN DETEMIR 100 UNITS/ML PEN SUBCU ONE (13:06)
[2016-08-28] MEDS: ALPRAZolam 0.25 MG TAB PO PRN (13:57)
[2016-08-28] MEDS: POTASSIUM CHLORIDE 10 MEQ TAB PO SCH (13:57)
[2016-08-28] MEDS: INSULIN DETEMIR 100 UNITS/ML PEN SUBCU SCH (13:57)
[2016-08-28] MEDS: LEVALBUTEROL NEBS 1.25 MG/3 ML VIAL INH SCH ×2 (14:15→20:03)
--- NOTE | 2016-08-28 14:40 | US ---
EXAM DESCRIPTION: Venous,Lower Extremity RT CLINICAL HISTORY: hx of DVT. Pain and swelling in right lower extremity. COMPARISON: None Available. TECHNIQUE: Right lower extremity venous grayscale, spectral, and color Doppler sonographic images. FINDINGS: There is no DVT identified. There is normal color flow observed with good flow augmentation. All deep veins compress normally. There is soft tissue edema in the right calf. IMPRESSION: Negative for DVT Electronically signed by: Candelario Gomez MD 08/28/2016 2:39 PM CDT
[2016-08-28] MEDS: PREGABALIN 25 MG CAP PO SCH ×2 (14:52→21:13)
[2016-08-28] MEDS ORDERED: SEVELAMER CARBONATE 800 MG PO SCH (15:00)
[2016-08-28] MEDS ORDERED: SILVER SULFADIAZINE 1 % 25 GM TUBE TOP ONE (15:58)
[2016-08-28] MEDS: CHLORHEXIDINE GLUCONATE 4 % 15 ML UD TOP SCH (16:12)
[2016-08-28] MEDS: SILVER SULFADIAZINE 1 % 25 GM TUBE TOP SCH (16:16)
[2016-08-28] MEDS ORDERED: INSULIN LISPRO 100 UNITS/ML PEN SUBCU SCH (16:30)
[2016-08-28] MEDS: FUROSEMIDE INJ 40 MG/4 ML VIAL IV SCH (16:42)
[2016-08-28] MEDS: INSULIN LISPRO 100 UNITS/ML PEN SUBCU SCH ×2 (16:48→21:14)
[2016-08-28] MEDS ORDERED: FUROSEMIDE INJ 20 MG/2 ML VIAL IV SCH (17:00)
[2016-08-29] MEDS ORDERED: BUMETANIDE TAB 2 MG TAB ONE (07:36)
[2016-08-29] MEDS ORDERED: amLODIPine BESYLATE 5 MG TAB ONE (07:37)
[2016-08-29] MEDS ORDERED: ASPIRIN EC 81 MG TAB PO ONE (07:37)
[2016-08-29] MEDS: INSULIN LISPRO 100 UNITS/ML PEN SUBCU SCH ×4 (07:44→21:00)
[2016-08-29] MEDS: POTASSIUM CHLORIDE 10 MEQ TAB PO SCH (07:47)
[2016-08-29] MEDS: LEVALBUTEROL NEBS 1.25 MG/3 ML VIAL INH SCH ×3 (08:50→20:44)
[2016-08-29] MEDS: ASPIRIN EC 81 MG TAB PO SCH (08:58)
[2016-08-29] MEDS: amLODIPine BESYLATE 5 MG TAB PO SCH (08:58)
[2016-08-29] MEDS: BUMETANIDE TAB 2 MG TAB PO SCH (08:58)
[2016-08-29] MEDS: PREGABALIN 25 MG CAP PO SCH ×3 (08:58→20:37)
[2016-08-29] MEDS: FUROSEMIDE INJ 40 MG/4 ML VIAL IV SCH (08:59)
[2016-08-29] MEDS: INSULIN DETEMIR 100 UNITS/ML PEN SUBCU SCH (09:03)
[2016-08-29] MEDS: CHLORHEXIDINE GLUCONATE 4 % 15 ML UD TOP SCH (09:05)
[2016-08-29] MEDS: SILVER SULFADIAZINE 1 % 25 GM TUBE TOP SCH (09:36)
[2016-08-29] MEDS: HYDROcodone 5MG/APAP 325MG 1 EA TAB PO PRN ×3 (09:38→20:37)
[2016-08-29] MEDS ORDERED: levoFLOXacin 250MG IV 250 MG in PREMIX BAG 1 BAG IVPB SCH (10:30)
--- NOTE | 2016-08-29 11:21 | PN ---
DATE: 08/29/16 SUBJECTIVE: The patient is sitting up in the bed complaining of shortness of breath and extreme weakness. No increased neck jugular venous distention is evident. The patient is somewhat anxious. Coloration is somewhat pale. Appetite is only fair. Baker catheter is in place with poor urine output suggesting an oliguric state. is present. The patient was able to ambulate with physical therapy from the bed to the bathroom door, but then back again, but felt very weak, much weaker than she has been in the past. In many ways, she appears stronger today than yesterday according to the and to the patient. OBJECTIVE: VITAL SIGNS: Afebrile. Pulse 77. Blood pressure 124/68. Pulse oximetry 93% on room air. Respirations 20. Output was only 150 mL through the catheter with 550 input, primarily oral. LUNGS: Diminished breath sounds. HEART: Tones are somewhat distant. ABDOMEN: Soft. Some mild epigastric tenderness, especially when she feels short of breath. No bowel movement yet. LABORATORY: White count 3,600 with 52% neutrophils, hemoglobin 11.3, platelet count low at 68,000. The first of July of this year, it was 91,000 platelets. Potassium 4.0, BUN 24, creatinine 2.54, which is up from 2.23 yesterday. Magnesium elevated at 4.8. Glucose 73 fasting. Troponin stable at 0.07. TSH normal at 1.69. Culture does show greater than 100,000 colony count of two organisms, probable gram negative dave. On preliminary appearance appears to be an E. coli species for the dominant colony. ASSESSMENT: 1. Chronic congestive heart failure with diastolic dysfunction with an acute exacerbation. Last echocardiogram was in 2014 showing a 56% ejection fraction. 2. History of medical noncompliance in the past with exacerbations of congestive heart failure whenever she would reduce her diuretic usage. 3. 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 Some tubular atrophy and interstitial fibrosis quite severe with 50% to 60% involvement on renal biopsy performed on 07/25/16 at [facility]. She was subsequently started on dialysis, which may eventually be continued as heart is stabilized. 4. History of chronic coronary artery disease. 5. History of hyperlipidemia. 6. History of hypertension. 7. History of left hip fracture in 2006. 8. History of chronic osteoarthritis. 9. History of diabetes mellitus, type 2, on insulin therapy. 10. 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 11. 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 12. Right buttock decubitus ulcer. 13. History of recent deep venous thrombosis especially involving the right lower extremity with deep venous thrombosis exam being negative at this time. 14. Second degree thermal mota right dorsum of toes with debridement continuing of necrotic peeling skin. PLAN: The patient's condition is discussed with Dr. Mckenzie earlier this morning. We will try to notify him if any specific abnormalities are again noted with recurring renal function examinations by tomorrow. His cell phone is [phone]. Recheck CBC for platelet count decrease as well as basic metabolic panel for creatinine and BUN. The patient is started on Levaquin only 250 mg a day for the gram negative dave with final ID and sensitivities by in the morning. Avoid Cipro in the future for her. Await ambulation studies to determine the need for oxygen. Discuss with Social Service the possibility of half-way facility placement so that she would be able to be transported three times a week to dialysis either here in [place] or to a rehab hospital such as [facility] or [facility]. Dr. Mckenzie would be available to assist if the patient were transferred to [facility] in [place] or was in one of our half-way facilities in [place] and had dialysis at the local dialysis center. The patient is very weak and may eventually require ongoing rehab and eventual assisted placement if unable to get back to her strength because of the danger of falling. To be discussed with the family. #[id number] [facility]
[2016-08-29] MEDS ORDERED: levoFLOXacin 250MG IV 50 ML IVPB ONE (11:36)
[2016-08-29] MEDS: FUROSEMIDE INJ 100 MG/10 ML VIAL IV SCH (17:27)
[2016-08-30] MEDS: HYDROcodone 5MG/APAP 325MG 1 EA TAB PO PRN ×3 (02:18→20:31)
[2016-08-30] MEDS: POTASSIUM CHLORIDE 10 MEQ TAB PO SCH (07:42)
[2016-08-30] MEDS: INSULIN LISPRO 100 UNITS/ML PEN SUBCU SCH ×4 (07:43→20:51)
[2016-08-30] MEDS ORDERED: cefTRIAXone SODIUM 1 GM in SODIUM CHL 0.9% 50ML MIN-BAG+ 50 ML IVPB SCH (09:00)
[2016-08-30] MEDS: ASPIRIN EC 81 MG TAB PO SCH (09:06)
[2016-08-30] MEDS: FUROSEMIDE INJ 100 MG/10 ML VIAL IV SCH (09:06)
[2016-08-30] MEDS: BUMETANIDE TAB 2 MG TAB PO SCH (09:06)
[2016-08-30] MEDS: amLODIPine BESYLATE 5 MG TAB PO SCH (09:07)
[2016-08-30] MEDS: PREGABALIN 25 MG CAP PO SCH ×3 (09:07→20:31)
[2016-08-30] MEDS: INSULIN DETEMIR 100 UNITS/ML PEN SUBCU SCH (09:11)
[2016-08-30] MEDS: SILVER SULFADIAZINE 1 % 25 GM TUBE TOP SCH (09:15)
[2016-08-30] MEDS: CHLORHEXIDINE GLUCONATE 4 % 15 ML UD TOP SCH (09:15)
[2016-08-30] MEDS ORDERED: SODIUM CHL 0.9% 50ML MIN-BAG+ 50 ML IVPB ONE (09:16)
[2016-08-30] MEDS ORDERED: cefTRIAXone SODIUM 1 GM VIAL ONE (09:16)
[2016-08-30] MEDS: cefTRIAXone SODIUM 1 GM in SODIUM CHL 0.9% 50ML MIN-BAG+ 50 ML IVPB SCH (09:17)
[2016-08-30] MEDS: LEVALBUTEROL NEBS 1.25 MG/3 ML VIAL INH SCH ×3 (09:45→20:09)
--- NOTE | 2016-08-30 15:25 | PN ---
DATE: 08/30/16 SUPERVISING PHYSICIAN: Gino Head M.D. SUBJECTIVE: The patient is resting in bed, visiting with her just having eaten breakfast. She notes that she continues to be significantly weak but shortness of breath is much less than previous days. She continues to have poor urine output and remains afebrile. OBJECTIVE: VITAL SIGNS: T max 97.9, pulse 74, blood pressure 108/66, respirations 20, O2 sat 97% on nasal cannula at 2 liters at rest. I's and O's show a positive balance of 290 with 585 in, 295 out. Weight 91.4 kg. LUNGS: Clear to auscultation, just diminished towards the bases. HEART: Regular rate and rhythm. ABDOMEN: Obese but soft, non-tender. Positive bowel sounds. Has yet to have a bowel movement. LABORATORY: White count today shows WBC 3.0, hemoglobin 9.9, hematocrit 32.0, platelet count 66,000. Differential still has a left shift. Chemistries show normal electrolytes with potassium 4.1, BUN 28, creatinine 2.73, glucoses have been 135 to 181, BNP is 1090 which is down from admission of 2450. MICROBIOLOGY: Final culture on urine shows Klebsiella pneumoniae which is resistant to fluoroquinolones, Ampicillin, Piperacillin, Bactrim, but sensitive to first, second and third generation cephalosporins. RADIOLOGY: There are no additional radiographic studies. ASSESSMENT: 1. Chronic congestive heart failure with a diastolic dysfunction with an acute exacerbation with last echocardiogram in 2014 showing an ejection fraction of 56%. 2. History of medical noncompliance in the past with exacerbation of congestive heart failure whenever she reduced her diuretic usage. 3. 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 Some tubular atrophy and interstitial fibrosis ordinarily be quite severe with 50% to 60% involvement on renal biopsy performed on 07/25/16 at [facility]. She was started on dialysis, which has since been stopped since the patient's admission to the hospital here in [place]. 4. History of chronic coronary artery disease. 5. History of hyperlipidemia. 6. Urinary tract infection with final culture results showing Klebsiella pneumoniae sensitive to first, second and third generation but resistant to fluoroquinolones. 7. History of hypertension. 8. History of left hip fracture in 2006. 9. History of osteoarthritis. 10. History of diabetes mellitus, type 2, on insulin therapy. 11. 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 12. 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 13. Right buttock decubitus ulcer. 14. History of recent deep venous thrombosis especially involving the right lower extremity with deep venous thrombosis exam currently negative on this admission. 15. Second degree thermal mota right dorsum of toes with debridement continuing of necrotic peeling of skin. PLAN: I did discuss the patient's laboratory this morning with Dr. Mckenzie. He is happy with the current BUN and creatinine, but wants us to decrease the Lasix by half. He does note that she does not need dialysis at this time and he will follow her once discharged wherever she is at whatever alf. She was on Levaquin 250 mg for the gram-negative rods that was identified as Klebsiella pneumoniae but based off that sensitivity report being resistant to Levaquin, the patient has been switched to Rocephin currently. Will await ambulation studies to determine her oxygenation need and discuss continued social service consultation with the possibility of detention placement which at this time is possibly going to be at [facility]. Dr. Mckenzie continues to be available to assist with the patient's ongoing care and ultimate discharge followup at a detention facility in [place]. Once discharged, the patient will need continued ongoing physical therapy as she is weak from previous hospitalizations and is at risk for significant falls. Until discharge, will continue to monitor the patient closely and treat appropriately. #[id number] [facility]
[2016-08-30] MEDS: FUROSEMIDE INJ 40 MG/4 ML VIAL IV SCH (17:08)
[2016-08-30] MEDS: SODIUM CHLORIDE 0.9% (FLUSH) 10 ML SYG IV PRN (17:08)
[2016-08-31] MEDS: INSULIN LISPRO 100 UNITS/ML PEN SUBCU SCH ×4 (07:12→21:04)
[2016-08-31] MEDS: POTASSIUM CHLORIDE 10 MEQ TAB PO SCH (07:39)
[2016-08-31] MEDS ORDERED: SODIUM CHL 0.9% 50ML MIN-BAG+ 50 ML IVPB ONE (08:25)
[2016-08-31] MEDS ORDERED: cefTRIAXone SODIUM 1 GM VIAL ONE (08:25)
[2016-08-31] MEDS: LEVALBUTEROL NEBS 1.25 MG/3 ML VIAL INH SCH ×3 (08:26→20:32)
[2016-08-31] MEDS ORDERED: SOD POLYSTYRENE SULFONATE 15 GM/60 ML BTTL PO ONE ×2 (08:39)
[2016-08-31] MEDS: cefTRIAXone SODIUM 1 GM in SODIUM CHL 0.9% 50ML MIN-BAG+ 50 ML IVPB SCH (08:39)
[2016-08-31] MEDS: SILVER SULFADIAZINE 1 % 25 GM TUBE TOP SCH (08:43)
[2016-08-31] MEDS: ASPIRIN EC 81 MG TAB PO SCH (08:43)
[2016-08-31] MEDS: PREGABALIN 25 MG CAP PO SCH ×3 (08:43→21:04)
[2016-08-31] MEDS: amLODIPine BESYLATE 5 MG TAB PO SCH (08:43)
[2016-08-31] MEDS: BUMETANIDE TAB 2 MG TAB PO SCH (08:43)
[2016-08-31] MEDS: CHLORHEXIDINE GLUCONATE 4 % 15 ML UD TOP SCH (08:43)
[2016-08-31] MEDS: FUROSEMIDE INJ 40 MG/4 ML VIAL IV SCH ×2 (08:45→17:03)
[2016-08-31] MEDS: INSULIN DETEMIR 100 UNITS/ML PEN SUBCU SCH (09:50)
[2016-08-31] MEDS: IV SET AND CAP CHANGE INJ INJ SCH ×2 (11:29→11:32)
[2016-08-31] MEDS: HYDROcodone 5MG/APAP 325MG 1 EA TAB PO PRN ×2 (15:56→22:17)
--- NOTE | 2016-08-31 19:58 | PN ---
DATE: 08/31/16 SUPERVISING PHYSICIAN: Gino Head M.D. SUBJECTIVE: The patient feels like she is doing better today. She feels weak but says her breathing is much improved. She continues to have poor urine output and remains afebrile. OBJECTIVE: VITAL SIGNS: Temperature 97.3, pulse 90, blood pressure 118/73, respirations 18, O2 sat showing 92% on room air. I's and O's show a positive balance of 1287 with 1430 in, 143 out. She has had 2 bowel movements. CHEST: Remains clear to auscultation. HEART: Regular rate and rhythm. ABDOMEN: Obese but soft, non-tender. Positive bowel sounds. EXTREMITIES: No clubbing, cyanosis or edema. Toes on the right foot are covered with dressing, and clean and dry. NEUROLOGIC: She is alert and oriented times three. LABORATORY: White count has improved to 3.6, hemoglobin and hematocrit are stable at 10.4 and 34.2, platelet count has improved somewhat to 72,000. There is no shift on the differential. Chemistries show potassium 5.6, BUN 36, creatinine 2.96, glucose has been 110 to 196, calcium 8.6. ASSESSMENT: 1. Chronic congestive heart failure with a diastolic dysfunction with an acute exacerbation with last echocardiogram in 2014 showing an ejection fraction of approximately 56%. 2. History of medical noncompliance in the past with exacerbation of congestive heart failure whenever she reduced her diuretic usage. 3. 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 Some tubular atrophy and interstitial fibrosis originally quite severe with 50% to 60% involvement on renal biopsy performed on 07/25/16 at [facility]. She had been previously started on dialysis, which has since been stopped. The patient remains stable and is followed by Dr. Mckenzie while in the hospital and on discharge. 4. History of chronic coronary artery disease. 5. History of hyperlipidemia. 6. Urinary tract infection with final culture results showing Klebsiella pneumoniae sensitive to first, second and third generation but resistant to fluoroquinolones. 7. Mild electrolyte imbalance with mild hyponatremia secondary to worsening renal function with previous potassium supplementation adding to exacerbation. 8. History of hypertension. 9. History of left hip fracture in 2006. 10. History of osteoarthritis. 11. History of diabetes mellitus, type 2, on insulin therapy. 12. History of heparin induced thrombocytopenia with coronary artery bypass grafting in 2001. 13. 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 14. Right buttock decubitus ulcer showing improvement with wound care. 15. History of recent deep venous thrombosis especially involving the right lower extremity with deep venous thrombosis exam currently negative on admission. 16. Second degree thermal mota right dorsum of toes with debridement continuing with necrotic peeling of skin. PLAN: The patient was initially going to be discharged today to [facility], however family decided they wanted a private room, therefore they are going to change to [facility]. Anisa, our Loan Servicing Specialist, is facilitating this change and anticipate will discharge tomorrow. Until discharge, will continue with antibiotic therapy to include Rocephin and at discharge she will need continuation of third generation cephalosporin for treatment of the underlying urinary tract infection. I did talk with Dr. Mckenzie today in regards to the lab findings and he suggested just stopping the potassium, continue with halving the dosage of Lasix as previous, and discharge the patient to have close clinical followup next week with him. She will need labs on Sunday to include a CMP with results to be sent to Dr. Mckenzie. Dr. Mckenzie with see her at [facility] on this coming . [facility] [place] [facility] once discharged should be instructed to call Dr. Mckenzie's office should the patient show any worsening of symptoms or should she decline significantly, send her back to the Emergency Department for further evaluation. The patient will have her Baker discontinued today and will anticipate discharge in the morning. The patient will go by private vehicle as she is able to ambulate and sit in a wheelchair. She did have an ambulation study today and per radiology interpretation the patient showed 96% O2 sat on her initial sat prior to ambulation, during ambulation showed 87% saturation, up to 90% during ambulation and recovery for 1 minute. The patient was significantly short of breath and unstable. The patient will need to be on O2 on discharge p.r.n. to maintain her O2 sats between 92 to 94%. Until discharge tomorrow to [facility], will continue to monitor the patient closely and treat appropriately. Will not repeat laboratory studies in the morning as those are ordered for outpatient once discharged this coming Sunday. Dr. Mckenzie is taking care of the patient in regards to renal function and is available for further assistance as well as Dr. Head is aware of the plan of care and available for collaboration and consultation. #[id number] [facility]
[2016-08-31] MEDS: SODIUM CHLORIDE 0.9% (FLUSH) 10 ML SYG IV PRN (21:08)
[2016-09-01] MEDS: ALPRAZolam 0.25 MG TAB PO PRN (03:44)
[2016-09-01] MEDS ORDERED: cefTRIAXone SODIUM 1 GM VIAL ONE (07:35)
[2016-09-01] MEDS ORDERED: SODIUM CHL 0.9% 50ML MIN-BAG+ 50 ML IVPB ONE (07:35)
[2016-09-01] MEDS: INSULIN LISPRO 100 UNITS/ML PEN SUBCU SCH (08:15)
[2016-09-01] MEDS: LEVALBUTEROL NEBS 1.25 MG/3 ML VIAL INH SCH (08:24)
[2016-09-01] MEDS: ASPIRIN EC 81 MG TAB PO SCH (08:59)
[2016-09-01] MEDS: PREGABALIN 25 MG CAP PO SCH (08:59)
[2016-09-01] MEDS: amLODIPine BESYLATE 5 MG TAB PO SCH (08:59)
[2016-09-01] MEDS: BUMETANIDE TAB 2 MG TAB PO SCH (08:59)
[2016-09-01] MEDS: cefTRIAXone SODIUM 1 GM in SODIUM CHL 0.9% 50ML MIN-BAG+ 50 ML IVPB SCH (09:00)
[2016-09-01] MEDS: INSULIN DETEMIR 100 UNITS/ML PEN SUBCU SCH (09:01)
[2016-09-01] MEDS: FUROSEMIDE INJ 40 MG/4 ML VIAL IV SCH (09:02)
[2016-09-01] MEDS: SILVER SULFADIAZINE 1 % 25 GM TUBE TOP SCH (09:21)
[2016-09-01] MEDS: CHLORHEXIDINE GLUCONATE 4 % 15 ML UD TOP SCH (09:40)
[2016-09-01 10:29] VITALS: BP 105/67; TEMP 97.2; O2SAT 99
--- NOTE | 2016-09-04 10:57 | DS ---
SUPERVISING PHYSICIAN: Gino Head MD DISCHARGE DIAGNOSES: 1. Chronic congestive heart failure with a diastolic dysfunction with an acute exacerbation with last echocardiogram in 2014 showing an ejection fraction of approximately; 56%. 2. History of medical noncompliance in the past with exacerbation of congestive heart failure having occurred whenever she reduced her diuretic usage showing improvement after diuresis continued. 3. 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 Some tubular atrophy and interstitial fibrosis was quite severe with 50% to 60% involvement noted on renal biopsy performed on 07/25/16 at [facility]. She had been previously started on dialysis which has since been stopped and the patient remained stable and is being followed by Dr. Magaña at time of discharge.. 4. History of chronic coronary artery disease. 5. History of hyperlipidemia. 6. Urinary tract infection with final culture results showing Klebsiella pneumoniae sensitive to first, second and third generation cephalosporins but resistant to fluoroquinolones with the patient being discharged on continuation of cephalosporin medication regimen. 7. Mild electrolyte imbalance with a mild hyperkalemia secondary to worsening renal function with previous potassium supplementation adding to possibly exacerbating levels showing improvement after stopping potassium replacement. 8. History of hypertension. 9. History of left hip fracture in 2006. 10 History of osteoarthritis. 11. History of diabetes mellitus, type 2, on insulin therapy. 12. 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 13. 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 14. Right buttock decubitus showing improvement after starting wound care. 15. History of recent deep venous thrombosis especially involving the right lower extremity with deep venous thrombosis exam currently negative on this admission. 16. Second degree thermal mota to right dorsum of toes with debridement continuing with necrotic peeling of skin. HISTORY OF PRESENT ILLNESS: Ms. Umanzor is an 81-year-old, female admitted to the hospital from the Emergency Room due to worsening shortness of breath. She had been unable to lie down flat and had to sit up in order to breathe. Of significance is that she was recently in [facility] until two weeks previous when she was four weeks on dialysis after renal biopsy showed significant renal impairment. Catheter was placed in her right upper chest to facilitate this hemodialysis treatment. She also had had some fairly significant second degree mota on the dorsum of her right toes from being too close to an electric heater when she was in the bathroom of one of her children. She was subsequently placed in rehabilitation for the last two weeks and was discharged this past Sunday. Dialysis continued with her last dialysis treatment being Sunday, which was 08/26/16. Arrangements were made for her to continue with dialysis on Sunday, , and Saturdays at our [facility] under Dr. Mckenzie's direction. Her shortness of breath and associated chest discomfort has been getting worse for the last 2 days during her rehab. She is unable physically to participate in rehab, therefore, necessitating her discharge as early as anticipated. in the Emergency Room she was found to have an elevated BNP of almost 2500. Initially , diureses was initiated and the patient was admitted to the hospital for fluid restrictions, ongoing dialysis and reevaluation of renal function and further communication on patient's care with Dr. Mckenzie. LABORATORY: CBC on admission showed a white count of 3.4, remained fairly stable at discharge, actually improved somewhat to 3.6. Hemoglobin and hematocrit were stable and on discharge were 10.4 and 34.2. Platelet count remains low but showing improvement and was at 72,000 by time of discharge. She remained without a left shift on differential. She had normal PT and PTT with a slightly elevated D dimer on admission at 259. Chemistries on admission with normal electrolytes, showed potassium 3.7, BUN 18 with creatinine of 2.3. Ultimately, she did max out her creatinine prior to discharge to 296 with a potassium of 5.6. BNP initially on admission was 2450 and discharge 1090. Glucoses were fairly well controlled, ranged from 73 to 196. Urinalysis on admission showed greater than 300 protein with a moderate amount of blood and a small amount of leukoesterase. Microscopic exam revealed 5 to 10 RBC, 20 to 30 WBC with 2+ amorphous and 3+ bacteria. MICROBIOLOGY: She had a urine culture showing Klebsiella pneumonia that was with a mixed resistance pattern showing resistance to ampicillin, Cipro, Levofloxacin, Piperacillin and Bactrim. It was sensitive to first, second and third generation cephalosporins. RADIOLOGY: Initially in the Emergency Room showed a chest x-ray per radiology interpretation showed multilumen dialysis catheter in the right IJ region of the SVC, cardiomegaly with a previous sternotomy and diffuse interstitial edema/ congestion, new from prior exam. There is no mention of large effusion or pneumothorax. She had a lower extremity Doppler study of the right leg and per radiology interpretation indicated it was negative for deep venous thrombosis. HOSPITAL COURSE: Ms. Umanzor was admitted as noted on initially 08/28/16 from the Emergency Room. She was started on loop diuretics that included Lasix 60 mg every 12 hours as she showed good diuresis. This was deescalated and tapered down to ultimately 40 mg daily. She was started on antibiotics initially to include Levaquin for underlying urinary tract infection. When results of culture came back, antibiotic therapy was started appropriately and she was started on Rocephin. Dr. Mckenzie was notified of the patient's laboratory results daily and assisted with management of her fluids. She clinically progressed well and did not require further dialysis during hospitalization and ultimately was discharged, felt clinically stable enough after talking with Dr. Mckenzie that the patient could continue with outpatient treatment plan at a local care facility. Initially, the plans were to send the patient to [facility], however, patient's family and decided he would rather have her go to [facility]. Therefore, the patient spend an additional 24 hours in the hospital awaiting arrangements for this to be secured. On the morning of discharge, the patient was discharged, she was showing to be stable and was discharged to continue with outpatient treatment plan. She remained on antibiotics through hospitalization and strict fluid restriction of 1500 cc per day. She did show the ability to ambulate with physical therapy, although she was quite deconditioned. The wounds on her toes were treated with Silvadene and Hibiclens and were showing good improvement daily. Ultimately, she was discharged to [facility] to continue with care under the direction of Dr. Mckenzie and Dr. Wild.. PLAN: The patient is discharged to [facility] to have close clinical followup with Dr. Mckenzie on 09/07/[address] Wild in 7 to 10 days after discharge. She was to resume her home medications as directed and her antibiotics as instructed and to take antibiotics every 48 hours taking into consideration.her renal function until completed. She was to keep a strict fluid restriction of no less than 1500 cc per 24-hour period. She was to have a CBC and CMP completed on 09/04/16, the Sunday after discharge with the results to be called to Dr. Mckenzie. The [facility] was notified to return the patient to the hospital should she have any worsening of symptoms or any concerns and to call Dr. Mckenzie with any further questions. Wound care was to continue daily to the left foot with Hibiclens and Silvadene applied covering with dressing. She was to be repositioned and turned every 2 hours while in bed to prevent worsening of the decubitus on her coccyx and dressings to be placed to her buttocks daily. She was discharged in stable condition with new prescriptions to include Ceftin 500 mg every 48 hours #4 and all other medications were resumed as previous to hospitalization except for noted removal of her Lasix as Dr. Mckenzie felt that she could be controlled in regards to fluids and congestive heart failure with Bumex. She did have continued dialysis port in place which showed to be without any signs of infection. Instructions were provided through the receiving facility on care and expected plan of care and to call Dr. Mckenzie with any questions. #[id number] [facility]
== END 2016-09-01 11:35 | DRG 291 ==
LOC: ER 06:35 → MS 09:03
PROVIDERS: ADMIT Emergency Medicine; ATTEND Nurse Practitioner Family
DX: I13.0 Hypertensive heart and chronic kidney disease with heart failure and stage 1 through stage 4 chronic kidney disease, or unspecified chronic kidney disease (principal); I50.33 Acute on chronic diastolic (congestive) heart failure; N17.9 Acute kidney failure, unspecified; N39.0 Urinary tract infection, site not specified; E11.42 Type 2 diabetes mellitus with diabetic polyneuropathy; I25.10 Atherosclerotic heart disease of native coronary artery without angina pectoris; F41.9 Anxiety disorder, unspecified; M19.90 Unspecified osteoarthritis, unspecified site; E78.5 Hyperlipidemia, unspecified; E11.22 Type 2 diabetes mellitus with diabetic chronic kidney disease; N05.8 Unspecified nephritic syndrome with other morphologic changes; E87.5 Hyperkalemia; L89.319 Pressure ulcer of right buttock, unspecified stage; T25.231A Burn of second degree of right toe(s) (nail), initial encounter; E66.9 Obesity, unspecified; B96.1 Klebsiella pneumoniae [K. pneumoniae] as the cause of diseases classified elsewhere; Z16.11 Resistance to penicillins; Z16.23 Resistance to quinolones and fluoroquinolones; Z16.29 Resistance to other single specified antibiotic; Z79.4 Long term (current) use of insulin; Z95.1 Presence of aortocoronary bypass graft; Z99.2 Dependence on renal dialysis; Z86.718 Personal history of other venous thrombosis and embolism; Z79.899 Other long term (current) drug therapy; Z68.36 Body mass index [BMI] 36.0-36.9, adult

== ENCOUNTER → 2016-09-04 | Outpatient (CLI) | payer MEDICARE | END | disposition home or self-care (01) | LOC: LAB.O 09:57 | PROVIDERS: ATTEND Nurse Practitioner Family | DX: N18.9 Chronic kidney disease, unspecified (principal) ==

== ENCOUNTER → 2016-09-06 | Outpatient (CLI) | payer MEDICARE | END | disposition home or self-care (01) | LOC: GT 08:11 | PROVIDERS: ATTEND Family Medicine | DX: E11.9 Type 2 diabetes mellitus without complications (principal); E78.5 Hyperlipidemia, unspecified; N19 Unspecified kidney failure ==

== ENCOUNTER → 2016-09-08 | Outpatient (CLI) | payer MEDICARE | LOC: GT 08:41 | PROVIDERS: ATTEND Family Medicine | DX: N28.9 Disorder of kidney and ureter, unspecified (principal); E78.5 Hyperlipidemia, unspecified; N17.9 Acute kidney failure, unspecified; I10 Essential (primary) hypertension; E11.9 Type 2 diabetes mellitus without complications ==

== ENCOUNTER → 2016-09-11 | Outpatient (CLI) | payer MEDICARE | END | disposition home or self-care (01) | LOC: GT 08:32 | PROVIDERS: ATTEND Family Medicine | DX: N28.9 Disorder of kidney and ureter, unspecified (principal) ==

== ENCOUNTER 2016-09-15 10:42 | Emergency (ER) | payer MEDICARE ==
--- NOTE | 2016-09-15 10:59 | ED.PDOC ---
History of Present Illness - General Time Seen by Provider: 09/15/16 10:53 Source: patient, family Exam Limitations: no limitations - History of Present Illness Initial Comments: Ms. Constance Umanzor 81 y/o female with dm2,ckd,chf stated that she had difficulty breathing this morning at the [facility] which got worse decided to come to er.She was hospitalized here last week and was discharge to the [facility]. Denies chest pain cough fever. She was dialyzed in july at hospital in [place] due to acute renal failure and elevated potassium for several weeks.EF -56 done 2014. stated that she was doing well yesterday was on her wheelchair and attended [facility] at [facility]. Timing/Duration: 1-3 hours Activities at Onset: rest Possible Cause: chronic episodes Improving Factors: nothing Worsening Factors: nothing Associated Symptoms: denies symptoms Respiratory Risk Factors: other - chf Allergies/Adverse Reactions: Allergies Heparin Allergy (Mild, Verified 07/06/16 19:16) Home Medications: Ambulatory Orders Bumetanide [Bumex] 2 mg PO BID #0 04/30/16 Pregabalin [Lyrica] 25 mg PO TID #0 04/30/16 amLODIPine BESYLATE [Norvasc] 10 mg PO DAILY #0 04/30/16 Atorvastatin Calcium [Lipitor] 20 mg PO BEDTIME 08/28/16 Insulin Detemir [Levemir Pen] 35 units SC DAILY 08/28/16 Insulin Lispro (Human) [Humalog Kwikpen] See Protocol SC ACHS 08/28/16 [place]-3 Fatty Acids [Fish Oil 1000 mg] 1 cap PO 9A5P 08/28/16 Sevelamer Carbonate [Renvela] 800 mg PO TID 08/28/16 cloNAZepam [KlonoPIN] 0.5 mg PO BID PRN 09/15/16 metOLazone [Zaroxolyn] 10 mg PO DAILY 09/15/16 Review of Systems - Review of Systems Constitutional: States: weakness EENTM: States: no symptoms reported Respiratory: States: short of breath Cardiology: States: edema Gastrointestinal/Abdominal: States: no symptoms reported Genitourinary: States: other - oab Musculoskeletal: States: joint pain Neurological: States: no symptoms reported Endocrine: States: no symptoms reported Hematologic/Lymphatic: States: no symptoms reported Past Medical History (General) - Patient Medical History Hx Seizures: No Hx Stroke: No Hx Dementia: No Hx Asthma: No Hx of COPD: No Hx Cardiac Disorders: Yes - bypass Hx Congestive Heart Failure: Yes Hx Pacemaker: No Hx Hypertension: Yes Hx Thyroid Disease: No Hx Diabetes: Yes Hx Gastroesophageal Reflux: No Hx Renal Disease: Yes Hx Cancer: No Hx of HIV: No Hx Hepatitis C: No Hx MRSA: No Hx Other PMH: Yes - dvt Surgical History: cholecystectomy, coronary bypass surgery, other - hysterectomy ,Mateus cath,left hip surgery - Vaccination History Hx Tetanus, Diphtheria Vaccination: No Hx Influenza Vaccination: Yes Hx Pneumococcal Vaccination: Yes - Social History Hx Tobacco Use: No Hx Chewing Tobacco Use: No Hx Alcohol Use: No Hx Substance Use: No Hx Substance Use Treatment: No Hx Depression: No Hx Physical Abuse: No Hx Emotional Abuse: No Hx Suspected Abuse: No - Activities of Daily Living Jail/Assisted Living (if applicable):: [place] Grooming Ability: Minimum Assistance Eating (Feeding) Ability: Minimum Assistance Toileting Ability: Maximum Assistance - Female History Patient : No Family Medical History - Family History Mother Family History: Unknown Living Status: Unknown Hx Family Diabetes: Yes - dad Physical Exam - Physical Exam General Appearance: Alert, Anxious, No apparent distress Eyes, Ears, Nose, Throat Exam: PERRL/EOMI, normal ENT inspection, TMs normal Neck: non-tender, full range of motion, supple, normal inspection Respiratory: chest non-tender, no respiratory distress, rales - bases Cardiovascular/Chest: normal peripheral pulses, regular rate, rhythm, no JVD, no murmur Peripheral Pulses: radial,right: 1+, radial,left: 1+ Gastrointestinal/Abdominal: normal bowel sounds, non tender, soft Extremity: normal range of motion, non-tender, no calf tenderness, pedal edema - 3= Neurologic: no motor/sensory deficits, alert Skin Exam: normal color, other - healing burn wound toes right foot Lymphatic: no adenopathy Progress - Results/Orders Results/Orders: 09/15/16 10:54 URINALYSIS Stat 09/15/16 10:56 IV Care:Saline Lock per Protoc QSHIFT 09/15/16 15:19 ABG [Arterial Blood Gas] Stat Laboratory Results WBC 4.9 K/mm3 (4.8-10.8) 09/15/16 11:10 RBC 3.92 M/mm3 (4.20-5.40) L 09/15/16 11:10 Hgb 10.7 gm/dL (12.0-16.0) L 09/15/16 11:10 Hct 34.3 % (36.0-47.0) L 09/15/16 11:10 MCV 87.6 fl (81.0-99.0) 09/15/16 11:10 MCH 27.2 pg (27.0-31.0) 09/15/16 11:10 MCHC 31.3 g/dL (33.0-37.0) L 09/15/16 11:10 RDW 18.1 % (11.5-14.5) H 09/15/16 11:10 Plt Count 83 K/mm3 (130-400) L 09/15/16 11:10 MPV 10.4 fl (7.40-10.4) 09/15/16 11:10 Absolute Neuts (auto) 3.70 K/uL (1.8-6.8) 09/15/16 11:10 Absolute Lymphs (auto) 0.60 K/uL (1.0-3.4) L 09/15/16 11:10 Absolute Monos (auto) 0.40 K/uL (0.2-0.8) 09/15/16 11:10 Absolute Eos (auto) 0.20 K/uL (0.0-0.4) 09/15/16 11:10 Absolute Basos (auto) 0.00 K/uL (0.0-0.1) 09/15/16 11:10 Neutrophils % 75.3 % (42.0-78.0) 09/15/16 11:10 Lymphocytes % 12.0 % (20.0-50.0) L 09/15/16 11:10 Monocytes % 8.4 % (2.0-9.0) 09/15/16 11:10 Eosinophils % 3.4 % (1.0-5.0) 09/15/16 11:10 Basophils % 0.9 % (0.0-2.0) 09/15/16 11:10 PT 12.3 SECONDS (9.4-12.5) 09/15/16 11:10 INR 1.090 09/15/16 11:10 PTT (SP) 36.4 SECONDS (25.1-36.5) 09/15/16 11:10 Sodium 140 mmol/L (135-145) 09/15/16 11:10 Potassium 5.6 mmol/L (3.6-5.0) H 09/15/16 11:10 Chloride 105 mmol/L (101-111) 09/15/16 11:10 Carbon Dioxide 29 mmol/L (21-31) 09/15/16 11:10 Anion Gap 11.6 (12-18) L 09/15/16 11:10 BUN 64 mg/dL (7-18) H 09/15/16 11:10 Creatinine 2.31 mg/dL (0.6-1.3) H 09/15/16 11:10 BUN/Creatinine Ratio 27.7 (10-20) H 09/15/16 11:10 Random Glucose 161 mg/dL (70-105) H D 09/15/16 11:10 Serum Osmolality 301.2 mOsm/L (275-295) H 09/15/16 11:10 Calcium 9.4 mg/dL (8.4-10.2) 09/15/16 11:10 Phosphorus 5.8 mg/dL (2.5-4.6) H 09/15/16 11:10 Magnesium 2.3 mg/dL (1.8-2.5) 09/15/16 11:10 Total Bilirubin 0.6 mg/dL (0.2-1.0) 09/15/16 11:10 Direct Bilirubin < 0.1 mg/dL (0-0.2) 09/15/16 11:10 Indirect Bilirubin 0.5 mg/dL (0.2-0.8) 09/15/16 11:10 AST 15 IU/L (10-42) 09/15/16 11:10 ALT 12 IU/L (10-60) 09/15/16 11:10 Alkaline Phosphatase 59 IU/L (42-121) 09/15/16 11:10 Creatine Kinase 29 IU/L (26-140) 09/15/16 11:10 CK-MB (CK-2) 4.2 ng/mL (0.0-4.4) 09/15/16 11:10 CK-MB (CK-2) % Not Reportable 09/15/16 11:10 Troponin I 0.04 ng/mL (0.01-0.05) 09/15/16 11:10 B-Natriuretic Peptide 1890.0 pg/ml (0-100) H* 09/15/16 11:10 Serum Total Protein 6.7 gm/dL (6.4-8.2) 09/15/16 11:10 Albumin 3.6 g/dl (3.2-5.5) 09/15/16 11:10 Globulin Cancelled 09/15/16 11:10 Albumin/Globulin Ratio Cancelled 09/15/16 11:10 Old labs and records obtained from her previous hospitalization noted Bun/Cr stable ;Bnp downward trend Vital Signs - 24 hr 09/15/16 09/15/16 09/15/16 11:09 12:00 13:00 Temperature 96.3 F L Pulse Rate [ 69 66 68 Apical] Respiratory 20 20 20 Rate Blood Pressure 153/74 142/64 135/60 [Right Arm] O2 Sat by Pulse 94 L 95 93 L Oximetry - EKG/XRAY/CT XRAY: chest - atelectasis;Volume overload ;cardiomegaly Departure - Departure Clinical Impression: Acute dyspnea, Diastolic CHF, acute on chronic, CKD (chronic kidney disease) stage 4, GFR 15-29 ml/min, Diabetes 1.5, managed as type 1, Hypoxemia requiring supplemental oxygen, Anasarca associated with disorder of kidney Time of Disposition: 16:50 - D/W Dr. Jonathan SON Md-[facility] Disposition: Transfer to Hospital Condition: Fair Referrals: Wero Wild III, MD [Primary Care Provider] - 1-2 Weeks Home Medications: Ambulatory Orders Bumetanide [Bumex] 2 mg PO BID #0 04/30/16 Pregabalin [Lyrica] 25 mg PO TID #0 04/30/16 amLODIPine BESYLATE [Norvasc] 10 mg PO DAILY #0 04/30/16 Atorvastatin Calcium [Lipitor] 20 mg PO BEDTIME 08/28/16 Insulin Detemir [Levemir Pen] 35 units SC DAILY 08/28/16 Insulin Lispro (Human) [Humalog Kwikpen] See Protocol SC ACHS 08/28/16 [place]-3 Fatty Acids [Fish Oil 1000 mg] 1 cap PO 9A5P 08/28/16 Sevelamer Carbonate [Renvela] 800 mg PO TID 08/28/16 cloNAZepam [KlonoPIN] 0.5 mg PO BID PRN 09/15/16 metOLazone [Zaroxolyn] 10 mg PO DAILY 09/15/16
--- NOTE | 2016-09-15 11:29 | RAD ---
EXAM DESCRIPTION: Chest,1 View CLINICAL HISTORY: 81 years,Female,sob COMPARISON: August 28, 2016 FINDINGS: Five basilar opacifications which are worsened since prior study. Moderately large heart size. All last appear unremarkable.. Bony elements are unremarkable for age. Right-sided hemodialysis catheter. Patient has had a past sternotomy. Stable Severe degenerative changes of both glenohumeral joints. IMPRESSION: Findings consistent bilateral pleural effusions and underlying opacification most likely atelectasis but cannot exclude infiltrate. These are worsened since prior study. Cardiomegaly but the pulmonary vascularity appear unremarkable so the findings most likely are due to volume overload. Electronically signed by: Wero Savage MD 09/15/2016 11:28 AM CDT
[2016-09-15] MEDS ORDERED: BUMETANIDE 0.25 MG/ML VIAL IV ONE (12:42)
[2016-09-15] MEDS ORDERED: BUMETANIDE 0.25 MG/ML VIAL ONE ×2 (13:46→13:51)
[2016-09-15] MEDS ORDERED: NITROGLYCERIN 0.4 MG 25 EA TAB SL ONE (15:24)
[2016-09-15] MEDS ORDERED: SOD POLYSTYRENE SULFONATE 15 GM/60 ML BTTL PO ONE (15:39)
[2016-09-15] MEDS ORDERED: NITROGLYCERIN 0.4 MG/HR PATCH TOP ONE (15:59)
[2016-09-15 17:56] VITALS: BP 152/84; TEMP 96.5; O2SAT 95
== END 2016-09-15 17:50 | disposition short-term general hospital (02) ==
LOC: ER 10:42
DX: I13.0 Hypertensive heart and chronic kidney disease with heart failure and stage 1 through stage 4 chronic kidney disease, or unspecified chronic kidney disease (principal); I50.33 Acute on chronic diastolic (congestive) heart failure; N18.4 Chronic kidney disease, stage 4 (severe); E10.9 Type 1 diabetes mellitus without complications; R09.02 Hypoxemia; N04.9 Nephrotic syndrome with unspecified morphologic changes; I51.7 Cardiomegaly; Z95.1 Presence of aortocoronary bypass graft; Z79.4 Long term (current) use of insulin; Z79.899 Other long term (current) drug therapy; Z88.8 Allergy status to other drugs, medicaments and biological substances
CPT/HCPCS: 36415; 36600; 71010; 80048; 80076; 82550; 82553; 82803; 82805; 83880; 84100; 84443; 84484; 85025; 85610; 85730; J3490

== ENCOUNTER → 2016-09-15 | Outpatient (CLI) | payer MEDICARE | END | disposition home or self-care (01) | LOC: GT 09:22 | PROVIDERS: ATTEND Family Medicine | DX: N28.9 Disorder of kidney and ureter, unspecified (principal); Z79.899 Other long term (current) drug therapy; E87.8 Other disorders of electrolyte and fluid balance, not elsewhere classified ==